=== PATIENT | female | born 2000 | race Caucasian/White ===

== ENCOUNTER 2021-04-29 13:51 | Inpatient (IN) ==
[2021-04-29 14:30] LABS: Basophils # 0.1 K/mcL (0.0-0.2); Basophils % 1.2 %; Eosinophils # 0.2 K/mcL (0.0-0.6); Eosinophils % 2.8 %; Hematocrit 35.9 % (35.3-44.9); Hemoglobin 12.1 g/dL (11.5-15.4); Immature Granulocytes % 0.2 % (0-4); Lymphocytes # 1.6 K/mcL (0.6-4.6); Lymphocytes % 25.7 %; Mean Corpuscular HGB Conc 33.7 g/dL (31.6-35.5); Mean Corpuscular Volume 89.1 fL (83.0-100.0); Mean Platelet Volume 11.3 fL (9.4-12.4); Monocytes # 0.6 K/mcL (0.0-1.3); Monocytes % 9.5 %; Neutrophils # 3.7 K/mcL (1.6-8.9); Platelet Count 176 K/mcL (140-400); Red Blood Count 4.03 M/mcL (3.82-4.97); Red Cell Distribution Width 12.7 % (11.5-14.5); Segmented Neutrophils % 60.6 %; White Blood Count 6.1 K/mcL (4.3-11.1)
[2021-04-29 14:42] LABS: Bilirubin,Urine Negative (Negative); Blood,Urine Negative (Negative); Clarity,Urine Clear (Clear); Color,Urine Yellow (Yellow); Glucose,Urine (UA) Normal (Normal); Ketones,Urine Negative (Negative); Leukocyte Esterase,Urine Moderate (Negative); Mucus,Urine Many per lpf (None-Few); Nitrite,Urine Negative (Negative); Protein,Urine 30 mg/dL (Neg-Trace); RBC,Urine 0-3 per hpf (0-3); Specific Gravity,Urine > 1.030 (1.010-1.025); Squamous Epithelial Cell,Urine Moderate per hpf (None-Few)
[2021-04-29 15:07] LABS: Amphetamine Screen,Urine Positive ng/mL (Cutoff=1000); Barbiturate Screen,Urine Negative ng/mL (Cutoff=200); Benzodiazepines Screen,Urine Negative ng/mL (Cutoff=200); Cannabinoid Screen,Urine Positive ng/mL (Cutoff = 50); Cocaine Screen,Urine Negative ng/mL (Cutoff= 300); Opiate Screen,Urine Negative ng/mL (Cutoff=300); Phencyclidine Screen,Urine Negative ng/mL (Cutoff=25)
[2021-04-29 15:16] LABS: Acetaminophen < 10 mcg/mL (10-20); BUN/Creatinine Ratio 22 (6-26); Blood Urea Nitrogen 17 mg/dL (6-20); Calcium 9.4 mg/dL (8.6-10.3); Carbon Dioxide 22 mEq/L (23-29); Chloride 108 mEq/L (98-107); Chol/HDL Ratio 2.2 (0-4.9); Cholesterol 112 mg/dL (< 200); Ethanol < 10 mg/dL (Less than 10); Glucose 90 mg/dL (70-105); HDL Cholesterol 51 mg/dL (40-59); LDL Cholesterol,Calculated 49 mg/dL (< 100); Osmolality,Calculated 287 (280-300); Salicylate < 2.5 mg/dL (15.0-30.0); Sodium 138 mEq/L (136-145); Triglycerides 59 mg/dL (< 150); eGFR For African Americans > 60; eGFR For Non-African Americans > 60
[2021-04-29 16:13] LABS: Estimated Average Glucose 97 mg/dl
[2021-04-29 17:44] LABS: Influenza A PCR Negative (Negative); Influenza B PCR Negative (Negative); Resp. Syncytial Virus PCR Negative (Negative); SARS-CoV-2 by PCR (In House) Negative (Negative)
[2021-04-29] MEDS ORDERED: haloperidoL 5 MG TABLET PO PRN (18:14)
[2021-04-29] MEDS ORDERED: Acetaminophen 325 MG TABLET PO PRN (18:14)
[2021-04-29] MEDS ORDERED: *HR* LORazepam 1 MG TABLET PO PRN (18:14)
[2021-04-29] MEDS ORDERED: *HR* LORazepam 2 MG/ML VIAL IM PRN (18:14)
[2021-04-29] MEDS ORDERED: Ibuprofen 400 MG TABLET PO PRN (18:14)
[2021-04-29] MEDS ORDERED: Haloperidol Lactate 5 MG/ML VIAL IM PRN (18:14)
[2021-04-29] MEDS: hydrOXYzine pamoate 25 MG CAPSULE PO PRN (20:39)
[2021-04-29] MEDS: traZODone 50 MG TABLET PO PRN (20:39)
[2021-04-30] MEDS ORDERED: Mag Hydrox/Al Hydrox/Simeth 30 ML UDC PO PRN (08:19)
[2021-04-30] MEDS ORDERED: MOM Conc 10 ML UD.LIQ PO PRN (08:19)
[2021-04-30] MEDS: BuPROPion XL (24 HR) 150 MG TABLET PO SCH (11:36)
[2021-04-30] MEDS: traZODone 50 MG TABLET PO PRN (21:17)
[2021-04-30] MEDS: hydrOXYzine pamoate 25 MG CAPSULE PO PRN (21:17)
[2021-05-01] MEDS: BuPROPion XL (24 HR) 150 MG TABLET PO SCH (08:36)
[2021-05-01 08:37] VITALS: O2SAT 99
[2021-05-02] MEDS: BuPROPion XL (24 HR) 150 MG TABLET PO SCH (08:29)
[2021-05-02 09:50] VITALS: BP 106/62; PULSE 100; TEMP 98.3
== END 2021-05-02 12:20 | disposition home or self-care (01) | DRG 885 ==
LOC: EMEROOARM 13:51 → 1ANU 13:51 → OBSVTOIN 18:12 → 1ANU 19:25
PROVIDERS: ADMIT Psychiatry & Neurology Psychiatry; ATTEND Psychiatry & Neurology Psychiatry